=== PATIENT | female | born 1950 | race Caucasian/White ===

== ENCOUNTER 2021-05-05 11:11 | Emergency (ER) | payer BC, MEDICARE ==
[~2021-05-05] VITALS: Ht 175.3 cm; Wt 113.6 kg
[2021-05-05 12:04] LABS: BASOPHILS % (AUTO) 0.5 % (0-1); EOSINOPHILS % (AUTO) 0.1 % (0-6); HEMATOCRIT 43.3 % (35.0-45.0); HEMOGLOBIN 14.2 g/dl (12.0-16.0); LYMPHOCYTES % (AUTO) 13.1 % (21-51); MEAN CORPUSCULAR HEMOGLOBIN 29.2 PG (27.0-31.0); MEAN CORPUSCULAR HGB CONC 32.9 g/dL (33.0-36.5); MEAN PLATELET VOLUME 9.1 FL (7.4-10.4); MONOCYTES # (AUTO) 0.6 X10'3 (0-0.9); MONOCYTES % (AUTO) 8.4 % (2-12); NEUTROPHILS # (AUTO) 5.7 X10'3 (1.8-7.7); NEUTROPHILS % (AUTO) 77.9 % (42-75); PLATELET COUNT 224 X10'3 (140-440); RED BLOOD COUNT 4.87 X10'6 (4.20-5.60); RED CELL DISTRIBUTION WIDTH 13.5 % (11.5-14.5); WHITE BLOOD COUNT 7.3 X10'3 (4.5-11.0)
[2021-05-05 12:16] LABS: ALBUMIN 3.2 G/DL (3.4-5.0); ANION GAP 13 (8-16); BLOOD UREA NITROGEN 16 MG/DL (7-18); BUN/CREATININE RATIO 12.7 (6.6-38.0); CALCIUM 8.5 MG/DL (8.5-10.1); CHLORIDE 104 MMOL/L (99-107); CREATININE 1.26 MG/DL (0.40-0.90); GLUCOSE 171 MG/DL (70-104); POTASSIUM 3.7 MMOL/L (3.5-5.1); SODIUM 141 MMOL/L (135-145); TOTAL CARBON DIOXIDE 24.3 MMOL/L (24-32); eGFR 42 ML/MIN
[2021-05-05] MEDS ORDERED: ketorolac tromethamine 15mg/ml inj. IV ONE (14:10)
[2021-05-05] MEDS ORDERED: acetaminophen 325mg tablet PO ONE (14:10)
[2021-05-05] MEDS ORDERED: CASIRIVIMAB/IMDEVIMAB inject. 10 ML in normal saline 100ml IV soln 100 ML IV ONE (14:10)
[2021-05-05 14:36] VITALS: BP 138/70
--- NOTE | 2021-05-05 15:56 | NUR ---
PT CALLED , ON WAY HERE FROM HOME. STATED JEET BE HERE IN A FEW MIN.
== END 2021-05-05 16:12 | disposition home or self-care (01) ==
LOC: ER 11:12
DX: U07.1 COVID-19 (principal); N95.1 Menopausal and female climacteric states; R05 Cough; R42 Dizziness and giddiness; Z91.040 Latex allergy status
CPT/HCPCS: 36415; 71045; 80048; 85025; 87635; 93005; 96374; 99285; C9803; J1885; M0243; Q0244